=== PATIENT | male | born 1945 | race Caucasian/White ===

== ENCOUNTER 2021-03-01 18:31 | Emergency (ER) | payer MEDICARE ==
[~2021-03-01] VITALS: Ht 180.3 cm; Wt 71.7 kg
[2021-03-01] MEDS ORDERED: IV NORMAL SALINE 1000 ML BAG IV ONE (19:00)
[2021-03-01 19:15] LABS: HEMATOCRIT 34.5 % (36.7-47.1); MEAN CORPUSCULAR HEMOGLOBIN 31.3 uug (23.8-33.4); MEAN CORPUSCULAR VOLUME 93.5 fL (73.0-96.2); PLATELET COUNT (AUTO) 141 K/uL (152-348)
[2021-03-01 19:19] LABS: CREATININE 1.3 mg/dL (0.6-1.3); POTASSIUM 4.4 mmol/L (3.5-5.1)
[2021-03-01 19:25] LABS: BILIRUBIN,DIRECT 0.2 mg/dL (0.0-0.2); BILIRUBIN,TOTAL 0.7 mg/dL (0.2-1.0); TOTAL PROTEIN, SERUM 6.6 g/dL (6.4-8.2)
[2021-03-01 21:03] LABS: *CLARITY,URINE CLEAR (CLEAR); *COLOR,URINE YELLOW (YELLOW)
[2021-03-01 21:04] LABS: *BILIRUBIN,URIN NEGATIVE (NEGATIVE); *BLOOD, URINE TRACE INTACT (NEGATIVE); *KETONES,URINE TRACE (NEGATIVE); *UROBILINOGEN,URINE 0.2 E.U./dl (NORMAL); LEUKOCYTE ESTERASE ,URINE NEGATIVE (NEGATIVE); NITRITE, URINE NEGATIVE (NEGATIVE); PH,URINE 6.5 (5.0-8.0); UGLUCOSE NEGATIVE (NEGATIVE)
[2021-03-01] MEDS ORDERED: IV NS 1000 ML 1,000 ML IV PRN (22:00)
--- NOTE | 2021-03-01 22:04 | NUR ---
Patient refused CT Scan w/ contrast - MD made aware - risks and benefits explained in detail
[2021-03-01 22:23] VITALS: BP 112/70
--- NOTE | 2021-03-01 22:24 | NUR ---
Patient discharged to home in stable condition. Written and verbal after care instructions given. Patient verbalizes understanding of instructions. Stressed follow up or return to ER for worsening s/s. VSS. Steady gait. All belongings with patient. Advised to not drive, caregiver is picking patient up.
== END 2021-03-01 21:15 | disposition home or self-care (01) ==
LOC: ER 18:31
DX: R55 Syncope and collapse (principal); D64.9 Anemia, unspecified; J98.11 Atelectasis; J90 Pleural effusion, not elsewhere classified; Z20.822 Contact with and (suspected) exposure to COVID-19; I49.1 Atrial premature depolarization; G89.29 Other chronic pain; M54.5 Low back pain; R79.1 Abnormal coagulation profile
CPT/HCPCS: 36415; 70030-TC; 71045; 83605; 83735; 85025; 85730; 93005; A4663; J7030